=== PATIENT | female | born 1980 | race Caucasian/White ===

== ENCOUNTER 2020-05-25 07:25 | Outpatient (CLI) | payer OTHER, SELFPAY ==
--- NOTE | ~2020-05-25 | PE_ITS ---
EXAMINATION: PET skull to mid thigh DATE: 05/25/2020 10:03 INDICATION: Solitary nodule of lung. TECHNIQUE: Blood glucose level was 100 mg/dL. 9.910 mCi of 18-fluorodeoxyglucose (18-FDG) was adminis tered i.v. Low dose computed tomography (CT) images were acquired from the base of the brain to the p roximal thighs for attenuation correction and anatomic localization. Automated exposure control was e mployed. Dose-length product (DLP) was 989 mGy-cm. Positron emission tomography (PET) images were acq uired in the same distribution. COMPARISON: None FINDINGS: Head/neck: There are no pathologically enlarged lymph nodes. There is increased activity in the oroph arynx without CT correlate, likely physiologic. Chest: There is no pulmonary nodule or pleural effusion. The heart size is normal. There are coronary artery calcifications. No pericardial effusion. Abdomen/pelvis/proximal thighs: There are surgical changes of the stomach. There is diffuse hepatic s teatosis. The gallbladder is absent. The spleen, pancreas, adrenal glands, and kidneys are normal. Th ere are no dilated loops of bowel. There are changes of appendectomy. There are changes of ventral he rnia repair. There are no pathologically enlarged lymph nodes. There is no free intraperitoneal fluid . There are changes of anterior fusion procedure at L5-S1. IMPRESSION: 1. No evidence of malignancy. Reviewed, dictated and finalized at location A. D TECHNICIAN
[2020-05-25 08:05] LABS: Glucose Point of Care 100 (65-105)
== END 2020-05-25 07:26 | disposition home or self-care (01) ==
LOC: ANHIMG 07:26
PROVIDERS: Visit Provider Nurse Practitioner
DX: R91.1 Solitary pulmonary nodule (principal)
CPT/HCPCS: 78815; 82948; A9552